=== PATIENT | male | born 1985 | race Caucasian/White ===

== ENCOUNTER 2021-03-29 12:52 | Inpatient (IN) | payer OTHER ==
[2021-03-29] MEDS ORDERED: ACETAMINOPHEN INJECTION 100 ML IVPB ONE (13:36)
[2021-03-29] MEDS ORDERED: LACTATED RINGERS SOLUTION 1000 ML INFUS.BAG IV ONE ×2 (13:37→15:38)
[2021-03-29] MEDS ORDERED: INSULIN (NOVOLOG) ASPART 100 UNITS/ML 10ML VIAL SQ ONE (13:40)
[2021-03-29 14:36] LABS: BASO % 0.2 % (0-2.0); HEMATOCRIT 35.2 % (35.4-49); HEMOGLOBIN 12.4 GM/dL (11.7-16.9); LYMPH % 24.1 % (8-40); MCH 33.9 pg (25.7-33.7); MCHC 35.1 g/dl (32.0-35.9); MEAN CELL VOLUME 96.4 fl (80-96); MEAN PLT VOLUME 9.2 fl (7.5-11.1); MONO % 8.6 % (3.8-10.2); NEUT % 67.1 % (42.8-82.8); PLATELET COUNT 157 10^3/uL (134-434); RBC 3.65 M/mm3 (4.00-5.60); RDW 11.9 % (11.9-15.9); WHITE BLOOD COUNT 3.3 K/mm3 (4.0-10.0)
[2021-03-29 14:37] LABS: VENOUS BASE EXCESS -4.1 mmol/L (-2-2); VENOUS O2 SATURATION 28.5 % (70-80); VENOUS PCO2 47.1 mmHg (38-52); VENOUS PH 7.297 (7.310-7.410)
[2021-03-29 14:42] LABS: INR 0.97 (0.83-1.09); PROTHROMBIN TIME (PATIENT) 11.9 SEC (9.7-13.0)
[2021-03-29 14:45] LABS: ACTIVATED PTT 27.8 SECONDS (25.2-36.5)
[2021-03-29 14:56] LABS: CHLORIDE 90 mmol/L (98-107); SODIUM 130 mmol/L (136-145)
[2021-03-29 14:58] LABS: ALBUMIN 3.3 g/dl (3.4-5.0); ANION GAP 17 MMOL/L (8-16); BLOOD UREA NITROGEN 12.1 mg/dL (7-18); CALCIUM 9.2 mg/dL (8.5-10.1); CO2 23 mmol/L (21-32)
[2021-03-29 15:01] LABS: SGOT/AST 36 U/L (15-37); SGPT/ALT 48 U/L (13-61)
[2021-03-29 15:03] LABS: BILIRUBIN,TOTAL 0.8 mg/dL (0.2-1); TOT PROT 7.6 g/dl (6.4-8.2)
[2021-03-29 15:04] LABS: ALK PHOS 53 U/L (45-117)
[2021-03-29] MEDS ORDERED: POTASSIUM CHLORIDE ORAL LIQUID 20 MEQ/15 ML PO ONE (15:04)
[2021-03-29 15:09] LABS: LACTIC ACID 2.3 mmol/L (0.4-2.0)
[2021-03-29 15:12] LABS: GLUCOSE,RANDOM 426 mg/dL (74-106)
[2021-03-29] MEDS ORDERED: D5-LR+20 MEQ KCL - 20 MEQ/1,000 ML INFUS.BAG IV SCH (15:15)
[2021-03-29] MEDS ORDERED: INSULIN REGULAR 100 UNITS in SODIUM CHLORIDE 99 ML IVPB SCH (15:15)
[2021-03-29] MEDS ORDERED: POTASSIUM CHLORIDE ORAL LIQUID 20 MEQ/15 ML ONE (15:39)
[2021-03-29] MEDS: KCL 10 MEQ IVPB 10 MEQ/100 ML INFUS.BAG IVPB SCH ×2 (16:15→17:30)
[2021-03-29 17:08] LABS: BLOOD UREA NITROGEN 12.5 mg/dL (7-18); CALCIUM 8.9 mg/dL (8.5-10.1)
[2021-03-29 17:12] LABS: CREATININE 1.7 mg/dL (0.55-1.3)
[2021-03-29] MEDS ORDERED: ACETAMINOPHEN 325 MG TABLET (FP) PO PRN (17:48)
[2021-03-29] MEDS ORDERED: METOCLOPRAMIDE HCL INJECTION 10 MG/2 ML VIAL IVPUSH PRN (17:48)
[2021-03-29] MEDS ORDERED: POTASSIUM CHLORIDE TABS 20 MEQ TABLET.ER (FP) PO ONE ×2 (17:54→18:07)
[2021-03-29] MEDS ORDERED: KCL 10 MEQ IVPB 10 MEQ/100 ML INFUS.BAG IVPB SCH (18:00)
[2021-03-29] MEDS ORDERED: KCL 10 MEQ IVPB 10 MEQ/100 ML INFUS.BAG IVPB ONE (18:06)
[2021-03-29 18:22] LABS: URINE APPEARANCE CLEAR; URINE BILIRUBIN NEGATIVE (NEGATIVE); URINE COLOR YELLOW; URINE GLUCOSE (UA) 3+ (NEGATIVE); URINE KETONE 1+ (NEGATIVE); URINE LEUK ESTERASE NEGATIVE (NEGATIVE); URINE NITRITE NEGATIVE (NEGATIVE); URINE PROTEIN NEGATIVE (NEGATIVE); URINE UROBILINOGEN 0.2 mg/dL (0.2-1.0)
[2021-03-29] MEDS: HEPARIN NA (PORCINE) 5,000 UNITS/ML 1ML VIAL SQ SCH (21:30)
[2021-03-29] MEDS: INSULIN (LEVEMIR) 100 UNITS/ML UNITS SQ SCH (21:30)
[2021-03-29] MEDS: CHLORHEXIDINE GLUCONATE 4% CLEANSER FOR DECOLONIZATION TP SCH (21:31)
[2021-03-29] MEDS: MUPIROCIN 2% TOPICAL OINTMENT FOR DECOLONIZATION NS SCH (21:31)
[2021-03-29] MEDS ORDERED: SODIUM CHLORIDE 0.45%/POT 20 MEQ/1,000 ML INFUS.BAG IV SCH (21:45)
[2021-03-29] MEDS: INSULIN SLIDING SCALE (NOVOLOG) 1 VIAL SQ SCH (22:00)
[2021-03-29] MEDS ORDERED: INSULIN SLIDING SCALE (NOVOLOG) 1 VIAL SQ SCH (22:00)
[2021-03-29] MEDS ORDERED: PT OWN MED DRAWER 7, Y5N ONE (22:08)
[2021-03-29 22:35] LABS: CALCIUM 9.1 mg/dL (8.5-10.1)
[2021-03-29 22:36] LABS: BLOOD UREA NITROGEN 11.3 mg/dL (7-18); MAGNESIUM 1.6 mg/dL (1.8-2.4)
[2021-03-29 22:39] LABS: CREATININE 1.4 mg/dL (0.55-1.3); PHOSPHOROUS 3.7 mg/dL (2.5-4.9)
[2021-03-29] MEDS ORDERED: POTASSIUM PHOSPHATE 15 MM in SODIUM CHLORIDE 250 ML IVPB ONE (22:52)
[2021-03-29] MEDS ORDERED: MAGNESIUM SULF 50% (8.12 MEQ/2 ML-1 GM VIAL) IVPB ONE (22:52)
[2021-03-30] MEDS: SODIUM CHLORIDE 0.9%/KCL 20 MEQ/1,000 ML INFUS.BAG IV SCH ×2 (00:23→22:17)
[2021-03-30] MEDS ORDERED: ACETAMINOPHEN 1000 MG/100 ML VIAL (NON FORMULARY) IVPB PRN (00:40)
[2021-03-30] MEDS ORDERED: PT OWN MED DRAWER 7, Y5N ONE ×2 (03:42→09:15)
[2021-03-30] MEDS: PANTOPRAZOLE 40 MG TABLET PO SCH ×2 (04:00→09:27)
[2021-03-30] MEDS: INSULIN SLIDING SCALE (NOVOLOG) 1 VIAL SQ SCH ×3 (06:23→17:47)
[2021-03-30] MEDS: HEPARIN NA (PORCINE) 5,000 UNITS/ML 1ML VIAL SQ SCH ×3 (06:23→22:17)
[2021-03-30] MEDS: INSULIN (LEVEMIR) 100 UNITS/ML UNITS SQ SCH ×2 (06:23→22:17)
[2021-03-30 07:00] LABS: BASO % 0.5 % (0-2.0); EOS % 0.1 % (0-4.5); HEMATOCRIT 30.3 % (35.4-49); HEMOGLOBIN 10.7 GM/dL (11.7-16.9); LYMPH % 26.7 % (8-40); MCH 33.7 pg (25.7-33.7); MCHC 35.3 g/dl (32.0-35.9); MEAN CELL VOLUME 95.5 fl (80-96); MEAN PLT VOLUME 8.7 fl (7.5-11.1); MONO % 8.7 % (3.8-10.2); PLATELET COUNT 139 10^3/uL (134-434); RBC 3.18 M/mm3 (4.00-5.60); RDW 11.7 % (11.9-15.9); WHITE BLOOD COUNT 2.4 K/mm3 (4.0-10.0)
[2021-03-30 07:17] LABS: CALCIUM 8.7 mg/dL (8.5-10.1)
[2021-03-30 07:18] LABS: ALBUMIN 2.7 g/dl (3.4-5.0); BLOOD UREA NITROGEN 8.2 mg/dL (7-18); MAGNESIUM 1.9 mg/dL (1.8-2.4)
[2021-03-30 07:21] LABS: CREATININE 1.1 mg/dL (0.55-1.3); PHOSPHOROUS 2.8 mg/dL (2.5-4.9)
[2021-03-30 07:23] LABS: BILIRUBIN,TOTAL 0.4 mg/dL (0.2-1); TOT PROT 6.2 g/dl (6.4-8.2)
[2021-03-30] MEDS: MUPIROCIN 2% TOPICAL OINTMENT FOR DECOLONIZATION NS SCH ×2 (09:26→22:17)
[2021-03-30] MEDS: DEXAMETHASONE SOD PHOSPHATE 4 MG/1 ML VIAL IVPUSH SCH (09:26)
[2021-03-30] MEDS: CHOLECALCIFEROL (VIT D3) 1,000 UNIT (25 MCG) TABLET PO SCH (09:27)
[2021-03-30] MEDS: ZINC SULFATE 220 MG CAPSULE (FP) PO SCH ×2 (09:27→22:18)
[2021-03-30] MEDS: ASCORBIC ACID 250 MG TABLET (FP) PO SCH (09:27)
[2021-03-30] MEDS ORDERED: REMDESIVIR 200 MG in SODIUM CHLORIDE 250 ML IVPB ONE (13:00)
[2021-03-30] MEDS ORDERED: Insulin (LOG) Aspart 100 UNITS/ML VIAL SQ ONE (17:47)
[2021-03-30] MEDS: CHLORHEXIDINE GLUCONATE 4% CLEANSER FOR DECOLONIZATION TP SCH (22:17)
[2021-03-30 22:54] LABS: CHLORIDE 103 mmol/L (98-107); SODIUM 136 mmol/L (136-145)
[2021-03-30 22:56] LABS: BLOOD UREA NITROGEN 9.2 mg/dL (7-18); CO2 21 mmol/L (21-32); GLUCOSE,RANDOM 349 mg/dL (74-106)
[2021-03-30 22:59] LABS: CREATININE 1.4 mg/dL (0.55-1.3)
[2021-03-30 23:33] LABS: ANION GAP 11 MMOL/L (8-16)
[2021-03-30] MEDS ORDERED: POTASSIUM CHLORIDE TABS 20 MEQ TABLET.ER (FP) PO ONE (23:36)
[2021-03-30] MEDS ORDERED: MAGNESIUM SULF 50% (8.12 MEQ/2 ML-1 GM VIAL) IVPB ONE (23:40)
[2021-03-31] MEDS: INSULIN SLIDING SCALE (NOVOLOG) 1 VIAL SQ SCH ×5 (00:10→21:09)
[2021-03-31] MEDS: KCL 10 MEQ IVPB 10 MEQ/100 ML INFUS.BAG IVPB SCH ×4 (03:00→06:27)
[2021-03-31] MEDS: HEPARIN NA (PORCINE) 5,000 UNITS/ML 1ML VIAL SQ SCH ×3 (05:32→21:08)
[2021-03-31 06:22] LABS: BASO % 0.1 % (0-2.0); EOS % 0.1 % (0-4.5); HEMOGLOBIN 10.9 GM/dL (11.7-16.9); LYMPH % 35.8 % (8-40); MCH 33.8 pg (25.7-33.7); MCHC 35.1 g/dl (32.0-35.9); MEAN CELL VOLUME 96.2 fl (80-96); MEAN PLT VOLUME 9.2 fl (7.5-11.1); MONO % 8.3 % (3.8-10.2); NEUT % 55.7 % (42.8-82.8); PLATELET COUNT 156 10^3/uL (134-434); RBC 3.22 M/mm3 (4.00-5.60); RDW 11.8 % (11.9-15.9); WHITE BLOOD COUNT 2.6 K/mm3 (4.0-10.0)
[2021-03-31] MEDS: INSULIN (LEVEMIR) 100 UNITS/ML UNITS SQ SCH ×2 (06:27→21:09)
[2021-03-31 06:42] LABS: CHOLESTEROL 91 mg/dL (50-200)
[2021-03-31 06:43] LABS: LDL CHOLESTEROL (ONLY SJRH) 30 mg/dL (5-100); TRIGLYCERIDES 89 mg/dL (0-150)
[2021-03-31 06:45] LABS: HDL CHOLESTEROL 50 mg/dL (40-60)
[2021-03-31 07:08] LABS: ALBUMIN 2.6 g/dl (3.4-5.0); BILIRUBIN,TOTAL 0.2 mg/dL (0.2-1); BLOOD UREA NITROGEN 8.7 mg/dL (7-18); CALCIUM 8.7 mg/dL (8.5-10.1); CREATININE 1.2 mg/dL (0.55-1.3); PHOSPHOROUS 2.2 mg/dL (2.5-4.9); TOT PROT 6.4 g/dl (6.4-8.2)
[2021-03-31 07:48] LABS: HIV INTERPRETATION NEGATIVE (NEGATIVE)
[2021-03-31] MEDS: MUPIROCIN 2% TOPICAL OINTMENT FOR DECOLONIZATION NS SCH (10:37)
[2021-03-31] MEDS: ASCORBIC ACID 250 MG TABLET (FP) PO SCH (11:37)
[2021-03-31] MEDS: DEXAMETHASONE SOD PHOSPHATE 4 MG/1 ML VIAL IVPUSH SCH (11:37)
[2021-03-31] MEDS: ZINC SULFATE 220 MG CAPSULE (FP) PO SCH ×2 (11:37→21:08)
[2021-03-31] MEDS: CHOLECALCIFEROL (VIT D3) 1,000 UNIT (25 MCG) TABLET PO SCH (11:37)
[2021-03-31] MEDS: PANTOPRAZOLE 40 MG TABLET PO SCH (11:37)
[2021-03-31] MEDS ORDERED: REMDESIVIR 100 MG in SODIUM CHLORIDE 250 ML IVPB SCH (13:00)
[2021-03-31 14:46] VITALS: BMI 22.2
[2021-03-31] MEDS ORDERED: PT OWN MED DRAWER 7, Y5N ONE (16:08)
[2021-03-31] MEDS ORDERED: Insulin (LOG) Aspart 100 UNITS/ML VIAL SQ ONE (17:25)
[2021-03-31] MEDS: SODIUM CHLORIDE 0.9%/KCL 20 MEQ/1,000 ML INFUS.BAG IV SCH ×2 (18:37→19:29)
[2021-03-31] MEDS ORDERED: INSULIN (NOVOLOG) ASPART 100 UNITS/ML 10ML VIAL ONE (20:54)
[2021-03-31] MEDS ORDERED: MUPIROCIN 2% TOPICAL OINTMENT FOR DECOLONIZATION NS SCH (22:00)
[2021-03-31] MEDS ORDERED: INSULIN (NOVOLOG) ASPART 100 UNITS/ML 10ML VIAL SQ ONE (23:58)
[2021-04-01] MEDS: HEPARIN NA (PORCINE) 5,000 UNITS/ML 1ML VIAL SQ SCH ×3 (06:34→21:36)
[2021-04-01] MEDS: SODIUM CHLORIDE 0.9%/KCL 20 MEQ/1,000 ML INFUS.BAG IV SCH (06:34)
[2021-04-01] MEDS: INSULIN (LEVEMIR) 100 UNITS/ML UNITS SQ SCH ×2 (06:34→21:47)
[2021-04-01] MEDS: INSULIN SLIDING SCALE (NOVOLOG) 1 VIAL SQ SCH ×4 (06:35→21:47)
[2021-04-01 09:02] LABS: BASO % 0.6 % (0-2.0); HEMATOCRIT 28.8 % (35.4-49); HEMOGLOBIN 9.8 GM/dL (11.7-16.9); MCH 33.3 pg (25.7-33.7); MCHC 34.2 g/dl (32.0-35.9); MEAN CELL VOLUME 97.3 fl (80-96); MONO % 7.4 % (3.8-10.2); PLATELET COUNT 160 10^3/uL (134-434); RBC 2.96 M/mm3 (4.00-5.60); RDW 12.4 % (11.9-15.9)
[2021-04-01 09:06] LABS: INR 0.92 (0.83-1.09); PROTHROMBIN TIME (PATIENT) 11.2 SEC (9.7-13.0)
[2021-04-01 09:08] LABS: ACTIVATED PTT 32.6 SECONDS (25.2-36.5)
[2021-04-01 09:26] LABS: ALBUMIN 2.6 g/dl (3.4-5.0); CALCIUM 8.5 mg/dL (8.5-10.1)
[2021-04-01 09:27] LABS: BLOOD UREA NITROGEN 8.9 mg/dL (7-18); MAGNESIUM 1.7 mg/dL (1.8-2.4)
[2021-04-01 09:30] LABS: CREATININE 1.1 mg/dL (0.55-1.3); PHOSPHOROUS 2.6 mg/dL (2.5-4.9)
[2021-04-01 09:31] LABS: BILIRUBIN,TOTAL 0.2 mg/dL (0.2-1)
[2021-04-01] MEDS ORDERED: DEXAMETHASONE SOD PHOSPHATE 4 MG/1 ML VIAL IVPUSH SCH (10:00)
[2021-04-01] MEDS ORDERED: MAGNESIUM 2GM/50ML STERILE WATER IVPB IVPB ONE (10:15)
[2021-04-01] MEDS ORDERED: SODIUM CHLORIDE 0.45% 1,000 ML IV SCH (10:30)
[2021-04-01] MEDS: ZINC SULFATE 220 MG CAPSULE (FP) PO SCH ×2 (10:56→21:34)
[2021-04-01] MEDS: CHOLECALCIFEROL (VIT D3) 1,000 UNIT (25 MCG) TABLET PO SCH (10:56)
[2021-04-01] MEDS: PANTOPRAZOLE 40 MG TABLET PO SCH (10:56)
[2021-04-01] MEDS: ASCORBIC ACID 250 MG TABLET (FP) PO SCH (10:56)
[2021-04-01] MEDS: REMDESIVIR 100 MG in SODIUM CHLORIDE 250 ML IVPB SCH (15:52)
[2021-04-01] MEDS: DEXAMETHASONE 4 MG TABLET (FP) PO SCH (15:53)
[2021-04-01] MEDS ORDERED: INSULIN (NOVOLOG) ASPART 100 UNITS/ML 10ML VIAL SQ ONE (21:05)
[2021-04-01] MEDS: GABAPENTIN 300 MG CAPSULE PO SCH (21:50)
[2021-04-02] MEDS: INSULIN (LEVEMIR) 100 UNITS/ML UNITS SQ SCH ×2 (06:07→23:13)
[2021-04-02] MEDS: HEPARIN NA (PORCINE) 5,000 UNITS/ML 1ML VIAL SQ SCH ×3 (06:07→22:59)
[2021-04-02] MEDS: INSULIN SLIDING SCALE (NOVOLOG) 1 VIAL SQ SCH ×4 (06:58→23:14)
[2021-04-02 07:48] LABS: BASO % 0.4 % (0-2.0); EOS % 0.1 % (0-4.5); HEMATOCRIT 30.3 % (35.4-49); HEMOGLOBIN 10.5 GM/dL (11.7-16.9); LYMPH % 27.3 % (8-40); MCH 33.1 pg (25.7-33.7); MCHC 34.6 g/dl (32.0-35.9); MEAN CELL VOLUME 95.7 fl (80-96); MEAN PLT VOLUME 8.6 fl (7.5-11.1); MONO % 7.2 % (3.8-10.2); PLATELET COUNT 180 10^3/uL (134-434); RBC 3.17 M/mm3 (4.00-5.60); RDW 12.3 % (11.9-15.9); WHITE BLOOD COUNT 2.9 K/mm3 (4.0-10.0)
[2021-04-02] MEDS: GABAPENTIN 300 MG CAPSULE PO SCH ×3 (08:00→22:59)
[2021-04-02 08:13] LABS: CALCIUM 8.4 mg/dL (8.5-10.1)
[2021-04-02 08:14] LABS: ALBUMIN 2.6 g/dl (3.4-5.0); MAGNESIUM 1.7 mg/dL (1.8-2.4)
[2021-04-02 08:17] LABS: CREATININE 0.9 mg/dL (0.55-1.3)
[2021-04-02 08:18] LABS: BILIRUBIN,TOTAL 0.3 mg/dL (0.2-1); PHOSPHOROUS 3.5 mg/dL (2.5-4.9); TOT PROT 6.3 g/dl (6.4-8.2)
[2021-04-02] MEDS ORDERED: MAGNESIUM OXIDE 400 MG TABLET (FP) PO ONE (08:45)
[2021-04-02] MEDS ORDERED: PT OWN MED DRAWER 7, Y5N ONE ×2 (09:55→12:29)
[2021-04-02] MEDS: DEXAMETHASONE 4 MG TABLET (FP) PO SCH (10:00)
[2021-04-02] MEDS: PANTOPRAZOLE 40 MG TABLET PO SCH (10:00)
[2021-04-02] MEDS: ZINC SULFATE 220 MG CAPSULE (FP) PO SCH ×2 (10:00→22:59)
[2021-04-02] MEDS: ASCORBIC ACID 250 MG TABLET (FP) PO SCH (10:00)
[2021-04-02] MEDS: CHOLECALCIFEROL (VIT D3) 1,000 UNIT (25 MCG) TABLET PO SCH (10:00)
[2021-04-02] MEDS ORDERED: SACUBITRIL/VALSARTAN 24 MG-26 MG TABLET PO SCH (11:45)
[2021-04-02] MEDS: REMDESIVIR 100 MG in SODIUM CHLORIDE 250 ML IVPB SCH (12:31)
[2021-04-02] MEDS: SACUBITRIL/VALSARTAN 24 MG-26 MG TABLET PO SCH ×2 (17:14→22:59)
[2021-04-03] MEDS: HEPARIN NA (PORCINE) 5,000 UNITS/ML 1ML VIAL SQ SCH ×2 (06:39→15:54)
[2021-04-03] MEDS: INSULIN SLIDING SCALE (NOVOLOG) 1 VIAL SQ SCH ×3 (06:48→16:47)
[2021-04-03] MEDS: INSULIN (LEVEMIR) 100 UNITS/ML UNITS SQ SCH (06:49)
[2021-04-03 08:49] LABS: BASO % 0.2 % (0-2.0); HEMATOCRIT 30.1 % (35.4-49); HEMOGLOBIN 10.6 GM/dL (11.7-16.9); LYMPH % 38.3 % (8-40); MCH 33.3 pg (25.7-33.7); MEAN CELL VOLUME 95.1 fl (80-96); NEUT % 54.5 % (42.8-82.8); PLATELET COUNT 204 10^3/uL (134-434); RBC 3.17 M/mm3 (4.00-5.60); RDW 12.2 % (11.9-15.9); WHITE BLOOD COUNT 3.2 K/mm3 (4.0-10.0)
[2021-04-03 08:53] LABS: INR 1.02 (0.83-1.09); PROTHROMBIN TIME (PATIENT) 12.3 SEC (9.7-13.0)
[2021-04-03 08:55] LABS: ACTIVATED PTT 29.8 SECONDS (25.2-36.5)
[2021-04-03 09:08] LABS: BLOOD UREA NITROGEN 11.6 mg/dL (7-18); CALCIUM 8.9 mg/dL (8.5-10.1); MAGNESIUM 1.5 mg/dL (1.8-2.4)
[2021-04-03 09:09] LABS: ALBUMIN 2.6 g/dl (3.4-5.0)
[2021-04-03 09:10] LABS: PHOSPHOROUS 2.7 mg/dL (2.5-4.9)
[2021-04-03 09:11] LABS: BILIRUBIN,TOTAL 0.3 mg/dL (0.2-1); TOT PROT 6.3 g/dl (6.4-8.2)
[2021-04-03] MEDS ORDERED: PT OWN MED DRAWER 7, Y5N ONE (10:17)
[2021-04-03] MEDS: ASCORBIC ACID 250 MG TABLET (FP) PO SCH (10:28)
[2021-04-03] MEDS: PANTOPRAZOLE 40 MG TABLET PO SCH (10:28)
[2021-04-03] MEDS: CHOLECALCIFEROL (VIT D3) 1,000 UNIT (25 MCG) TABLET PO SCH (10:28)
[2021-04-03] MEDS: GABAPENTIN 300 MG CAPSULE PO SCH (10:28)
[2021-04-03] MEDS: SACUBITRIL/VALSARTAN 24 MG-26 MG TABLET PO SCH (10:28)
[2021-04-03] MEDS: ZINC SULFATE 220 MG CAPSULE (FP) PO SCH (10:28)
[2021-04-03] MEDS: DEXAMETHASONE 4 MG TABLET (FP) PO SCH (10:28)
[2021-04-03] MEDS ORDERED: INSULIN (LEVEMIR) 100 UNITS/ML UNITS SQ SCH ×2 (12:31→22:00)
[2021-04-03] MEDS: REMDESIVIR 100 MG in SODIUM CHLORIDE 250 ML IVPB SCH (13:23)
[2021-04-03 14:27] VITALS: BP 128/63; PULSE 98; TEMP 99.3
[2021-04-04] MEDS ORDERED: INSULIN (LEVEMIR) 100 UNITS/ML UNITS SQ SCH (07:00)
== END 2021-04-03 19:03 | disposition home or self-care (01) | DRG 137 ==
LOC: JER 12:52 → JERBED 15:11 → JICU 20:41 → J6S 03-31 18:25
PROVIDERS: ADMIT Internal Medicine Pulmonary Disease; ATTEND Internal Medicine
PROC: XW033E5 Introduction of Remdesivir Anti-infective into Peripheral Vein, Percutaneous Approach, New Technology Group 5 (ICD-10-PCS; principal; 2021-03-30)
DX: U07.1 COVID-19 (principal); E10.40 Type 1 diabetes mellitus with diabetic neuropathy, unspecified; N17.9 Acute kidney failure, unspecified; E10.10 Type 1 diabetes mellitus with ketoacidosis without coma; E87.6 Hypokalemia; D64.9 Anemia, unspecified; D70.9 Neutropenia, unspecified; E88.09 Other disorders of plasma-protein metabolism, not elsewhere classified; I42.0 Dilated cardiomyopathy; I50.42 Chronic combined systolic (congestive) and diastolic (congestive) heart failure
CPT/HCPCS: 36415; 71045-TC-FY; 80048; 80053; 80061; 81003; 82010; 82550; 82728; 82803; 82962; 83036; 83605; 83615; 83721; 83735; 83880; 84100; 84484; 85025; 85379; 85610; 85651; 85730; 86140; 86769; 87040; 87086; 87389; 93005; 93010; 94761; 99291; C9399; C9803; J0131; J1644; U0003; U0005

== ENCOUNTER 2021-10-15 22:43 | Inpatient (IN) | payer OTHER ==
[2021-10-15 23:40] VITALS: BMI 24.8
[2021-10-16 04:27] LABS: BASO % 0.1 % (0-2.0); EOS % 0.1 % (0-4.5); HEMATOCRIT 33.8 % (35.4-49); HEMOGLOBIN 11.7 GM/dL (11.7-16.9); LYMPH % 17.3 % (8-40); MCH 33.6 pg (25.7-33.7); MCHC 34.7 g/dl (32.0-35.9); MEAN CELL VOLUME 96.8 fl (80-96); MEAN PLT VOLUME 7.8 fl (7.5-11.1); NEUT % 76.5 % (42.8-82.8); PLATELET COUNT 194 10^3/uL (134-434); RBC 3.49 M/mm3 (4.00-5.60); RDW 12.9 % (11.9-15.9); WHITE BLOOD COUNT 3.9 K/mm3 (4.0-10.0)
[2021-10-16 04:48] LABS: ALBUMIN 3.2 g/dl (3.4-5.0); CALCIUM 8.8 mg/dL (8.5-10.1)
[2021-10-16 04:51] LABS: CREATININE 0.9 mg/dL (0.55-1.3)
[2021-10-16 04:53] LABS: BILIRUBIN,TOTAL 0.4 mg/dL (0.2-1); TOT PROT 6.8 g/dl (6.4-8.2)
[2021-10-16 06:47] LABS: HEMATOCRIT 34.4 % (35.4-49); HEMOGLOBIN 11.6 GM/dL (11.7-16.9); MCH 33.1 pg (25.7-33.7); MCHC 33.8 g/dl (32.0-35.9); MEAN PLT VOLUME 8.3 fl (7.5-11.1); PLATELET COUNT 204 10^3/uL (134-434); RBC 3.52 M/mm3 (4.00-5.60); RDW 13.1 % (11.9-15.9)
[2021-10-16 07:13] LABS: CALCIUM 8.9 mg/dL (8.5-10.1)
[2021-10-16 07:14] LABS: ALBUMIN 3.3 g/dl (3.4-5.0); MAGNESIUM 1.4 mg/dL (1.8-2.4)
[2021-10-16 07:17] LABS: CREATININE 0.9 mg/dL (0.55-1.3); PHOSPHOROUS 3.7 mg/dL (2.5-4.9)
[2021-10-16 07:18] LABS: BILIRUBIN,TOTAL 0.6 mg/dL (0.2-1)
[2021-10-16] MEDS ORDERED: ACETAMINOPHEN 325 MG TABLET (FP) PO PRN (14:41)
[2021-10-16] MEDS: INSULIN SLIDING SCALE (NOVOLOG) 1 VIAL SQ SCH ×2 (17:46→21:30)
[2021-10-17] MEDS: INSULIN SLIDING SCALE (NOVOLOG) 1 VIAL SQ SCH ×2 (06:26→11:59)
[2021-10-17 06:47] VITALS: PULSE 75
[2021-10-17] MEDS ORDERED: ENOXAPARIN NA (PORCINE) 40 MG/0.4 ML DISP.SYRIN SQ SCH (10:00)
[2021-10-17 14:49] VITALS: BP 136/96; TEMP 98.4
[2021-10-17] MEDS ORDERED: Insulin (LOG) Aspart 100 UNITS/ML VIAL SQ ONE (14:49)
== END 2021-10-17 15:46 | disposition home or self-care (01) | DRG 639 ==
LOC: JER 22:43 → JERBED 10-16 03:06 → J7W 10-16 12:49
PROVIDERS: ADMIT Internal Medicine
DX: E10.649 Type 1 diabetes mellitus with hypoglycemia without coma (principal); E10.40 Type 1 diabetes mellitus with diabetic neuropathy, unspecified; I50.9 Heart failure, unspecified; R56.9 Unspecified convulsions
CPT/HCPCS: 36415; 70450-TC; 80053; 82962; 83735; 84100; 85025; 85027; 93005; 93010; 99285-25; C9803; U0003; U0005

== ENCOUNTER 2021-10-24 00:52 | Inpatient (IN) | payer OTHER ==
[2021-10-24] MEDS ORDERED: DEXTROSE 50%-WATER - 25 GM/50 ML VIAL IVPUSH ONE ×5 (01:00→03:07)
[2021-10-24 01:07] VITALS: BMI 24.4
[2021-10-24 01:14] LABS: HEMOGLOBIN 12.2 GM/dL (11.7-16.9); MCH 33.3 pg (25.7-33.7); MCHC 33.9 g/dl (32.0-35.9); MEAN CELL VOLUME 98.2 fl (80-96); MEAN PLT VOLUME 7.5 fl (7.5-11.1); PLATELET COUNT 217 10^3/uL (134-434); RBC 3.67 M/mm3 (4.00-5.60); RDW 12.9 % (11.9-15.9); WHITE BLOOD COUNT 5.4 K/mm3 (4.0-10.0)
[2021-10-24 01:22] LABS: INR 1.04 (0.83-1.09)
[2021-10-24 01:25] LABS: ACTIVATED PTT 26.9 SECONDS (25.2-36.5)
[2021-10-24 01:32] LABS: CHLORIDE 108 mmol/L (98-107); SODIUM 143 mmol/L (136-145)
[2021-10-24 01:34] LABS: CALCIUM 9.4 mg/dL (8.5-10.1)
[2021-10-24 01:35] LABS: ALBUMIN 3.5 g/dl (3.4-5.0); BLOOD UREA NITROGEN 10.1 mg/dL (7-18); CO2 28 mmol/L (21-32); GLUCOSE,RANDOM 92 mg/dL (74-106); MAGNESIUM 1.9 mg/dL (1.8-2.4)
[2021-10-24 01:37] LABS: SGPT/ALT 22 U/L (13-61)
[2021-10-24 01:38] LABS: CREATININE 1.2 mg/dL (0.55-1.3); SGOT/AST 23 U/L (15-37)
[2021-10-24 01:39] LABS: BILIRUBIN,TOTAL 0.5 mg/dL (0.2-1); TOT PROT 7.7 g/dl (6.4-8.2)
[2021-10-24 01:40] LABS: ALK PHOS 52 U/L (45-117); LACTIC ACID 2.5 mmol/L (0.4-2.0)
[2021-10-24 01:41] LABS: ANION GAP 7 MMOL/L (8-16)
[2021-10-24] MEDS ORDERED: MAGNESIUM SULF 50% (8.12 MEQ/2 ML-1 GM VIAL) IVPB ONE (01:57)
[2021-10-24] MEDS ORDERED: KCL 10 MEQ IVPB 10 MEQ/100 ML INFUS.BAG IVPB SCH (02:00)
[2021-10-24] MEDS: KCL 10 MEQ IVPB 10 MEQ/100 ML INFUS.BAG IVPB SCH ×3 (02:03→04:33)
[2021-10-24] MEDS ORDERED: MAGNESIUM SULFATE IN WATER 2 GM/50 ML IVPB IVPB ONE (02:04)
[2021-10-24] MEDS ORDERED: DEXTROSE 10%-WATER - 1,000 ML IV SCH (02:15)
[2021-10-24 02:49] LABS: URINE APPEARANCE CLEAR; URINE BILIRUBIN NEGATIVE (NEGATIVE); URINE COLOR YELLOW; URINE GLUCOSE (UA) 2+ (NEGATIVE); URINE KETONE NEGATIVE (NEGATIVE); URINE LEUK ESTERASE NEGATIVE (NEGATIVE); URINE NITRITE NEGATIVE (NEGATIVE); URINE PROTEIN NEGATIVE (NEGATIVE); URINE UROBILINOGEN 0.2 mg/dL (0.2-1.0)
[2021-10-24 02:57] LABS: URINE BARBITURATES NEGATIVE (NEGATIVE)
[2021-10-24 02:58] LABS: COCAINE, UR NEGATIVE (NEGATIVE); METHADONE, UR NEGATIVE (NEGATIVE); PHENCYCLIDINE,URINE NEGATIVE (NEGATIVE); URINE BENZODIAZEPINES NEGATIVE (NEGATIVE)
[2021-10-24 02:59] LABS: OPIATES, URI NEGATIVE (NEGATIVE); URINE AMPHETAMINES NEGATIVE (NEGATIVE)
[2021-10-24 03:05] LABS: ANISOCYTOSIS 2+; MACROCYTOSIS 0; OVALOCYTE 1+; PLATELET ESTIMATE NORMAL
[2021-10-24] MEDS ORDERED: KCL 10 MEQ IVPB 10 MEQ/100 ML INFUS.BAG IVPB ONE ×2 (03:09→04:14)
[2021-10-24 05:31] LABS: CALCIUM 9.3 mg/dL (8.5-10.1)
[2021-10-24 05:32] LABS: BLOOD UREA NITROGEN 8.5 mg/dL (7-18)
[2021-10-24 05:35] LABS: CREATININE 0.9 mg/dL (0.55-1.3)
[2021-10-24] MEDS ORDERED: HEPARIN NA (PORCINE) 5,000 UNITS/ML 1ML VIAL ONE (07:31)
[2021-10-24] MEDS: HEPARIN NA (PORCINE) 5,000 UNITS/ML 1ML VIAL SQ SCH ×2 (07:36→14:22)
[2021-10-24] MEDS ORDERED: SACUBITRIL/VALSARTAN 24 MG-26 MG TABLET PO SCH (10:00)
[2021-10-24 11:41] VITALS: BP 119/80; PULSE 83; TEMP 98
== END 2021-10-24 15:35 | disposition left against medical advice (07) | DRG 638 ==
LOC: JER 00:52 → JERBED 01:01
PROVIDERS: ADMIT Hospitalist; ATTEND Internal Medicine
DX: E10.649 Type 1 diabetes mellitus with hypoglycemia without coma (principal); I42.0 Dilated cardiomyopathy; E10.40 Type 1 diabetes mellitus with diabetic neuropathy, unspecified; Z79.4 Long term (current) use of insulin; R56.9 Unspecified convulsions; E87.6 Hypokalemia; I50.9 Heart failure, unspecified
CPT/HCPCS: 36415; 70450-TC; 71045-TC-FY; 80048; 80053; 80307; 81003; 82010; 82962; 83605; 83735; 84439; 84443; 84484; 85025; 85610; 85730; 93005; 93010; 99285-25; C9803; J1644; U0003; U0005

== ENCOUNTER 2021-11-18 12:57 | Inpatient (IN) | payer OTHER ==
[2021-11-18 13:40] LABS: VENOUS BASE EXCESS -24.7 mmol/L (-2-2); VENOUS O2 SATURATION 66.3 % (70-80); VENOUS PCO2 21.2 mmHg (38-52)
[2021-11-18] MEDS ORDERED: SODIUM CHLORIDE 0.9% 500 ML INFUS.BAG IV ONE (13:43)
[2021-11-18 13:46] LABS: HEMATOCRIT 39.2 % (35.4-49); MCH 33.6 pg (25.7-33.7); MCHC 33.1 g/dl (32.0-35.9); MEAN CELL VOLUME 101.6 fl (80-96); PLATELET COUNT 145 10^3/uL (134-434); RBC 3.86 M/mm3 (4.00-5.60); RDW 13.1 % (11.9-15.9); VENOUS PH 7.002 (7.310-7.410)
[2021-11-18 13:56] LABS: ACTIVATED PTT 31.5 SECONDS (25.2-36.5); INR 1.04 (0.83-1.09)
[2021-11-18] MEDS ORDERED: ONDANSETRON 4 MG/2 ML VIAL IVPUSH ONE (14:05)
[2021-11-18] MEDS ORDERED: POTASSIUM CHLORIDE 20 MEQ PREMIX IVPB 100 ML IVPB ONE (14:05)
[2021-11-18] MEDS ORDERED: SODIUM CHLORIDE 0.9%/KCL 20 MEQ/1,000 ML INFUS.BAG IV ONE (14:06)
[2021-11-18] MEDS ORDERED: ONDANSETRON 4 MG/2 ML VIAL ONE (14:08)
[2021-11-18 14:13] LABS: CHLORIDE 96 mmol/L (98-107); SODIUM 133 mmol/L (136-145)
[2021-11-18 14:14] LABS: ALBUMIN 3.6 g/dl (3.4-5.0); CALCIUM 9.9 mg/dL (8.5-10.1)
[2021-11-18 14:15] LABS: MAGNESIUM 2.3 mg/dL (1.8-2.4)
[2021-11-18 14:16] LABS: ANION GAP 31 MMOL/L (8-16); CO2 6 mmol/L (21-32); CREATININE 2.6 mg/dL (0.55-1.3)
[2021-11-18 14:17] LABS: PHOSPHOROUS 6.3 mg/dL (2.5-4.9); SGOT/AST 28 U/L (15-37); SGPT/ALT 40 U/L (13-61)
[2021-11-18 14:18] LABS: TOT PROT 8.5 g/dl (6.4-8.2)
[2021-11-18 14:19] LABS: ALK PHOS 66 U/L (45-117)
[2021-11-18 14:23] LABS: N-TERMINAL BNP 786.1 pg/ml (5-125)
[2021-11-18] MEDS ORDERED: INSULIN REGULAR HUMAN 100 UNITS/ML *VIAL IVPUSH ONE (14:34)
[2021-11-18] MEDS ORDERED: PIPERACILLIN/TAZOB 2.25 GM 2.25 GM in DEXTROSE 5%-WATER - 50 ML IVPB ONE (14:35)
[2021-11-18 14:42] LABS: LIPASE 63 U/L (73-393)
[2021-11-18] MEDS ORDERED: INSULIN REGULAR 100 UNITS in SODIUM CHLORIDE 99 ML IVPB SCH ×2 (14:45→17:30)
[2021-11-18] MEDS ORDERED: LACTATED RINGERS SOLUTION 1000 ML INFUS.BAG IV ONE (14:51)
[2021-11-18 14:55] LABS: BLOOD UREA NITROGEN 26.8 mg/dL (7-18); GLUCOSE,RANDOM 613 mg/dL (74-106)
[2021-11-18] MEDS ORDERED: PIPERACILLIN/TAZOB 2.25 GM 2.25 GM/50 ML BAG IVPB ONE (15:17)
[2021-11-18 15:38] LABS: EPI CELLS 4 /uL (0-25.1); HYALINE CASTS 2 /uL (0-3.1); URINE APPEARANCE CLEAR; URINE BACTERIA 1 /uL (0-1359); URINE BILIRUBIN NEGATIVE (NEGATIVE); URINE COLOR YELLOW; URINE GLUCOSE (UA) 3+ (NEGATIVE); URINE KETONE 4+ (NEGATIVE); URINE LEUK ESTERASE NEGATIVE (NEGATIVE); URINE NITRITE NEGATIVE (NEGATIVE); URINE PROTEIN 2+ (NEGATIVE); URINE RBC 2 /uL (0-23.9); URINE UROBILINOGEN 0.2 mg/dL (0.2-1.0); URINE WBC 7 /uL (0-25.8)
[2021-11-18 15:42] LABS: CHLORIDE 97 mmol/L (98-107); SODIUM 133 mmol/L (136-145)
[2021-11-18 15:44] LABS: BLOOD UREA NITROGEN 28.6 mg/dL (7-18); CALCIUM 9.4 mg/dL (8.5-10.1); CO2 7 mmol/L (21-32)
[2021-11-18 15:45] LABS: ALBUMIN 3.4 g/dl (3.4-5.0)
[2021-11-18 15:47] LABS: SGPT/ALT 38 U/L (13-61)
[2021-11-18 15:48] LABS: CREATININE 2.6 mg/dL (0.55-1.3); SGOT/AST 25 U/L (15-37)
[2021-11-18 15:49] LABS: BILIRUBIN,TOTAL 0.8 mg/dL (0.2-1); TOT PROT 8.1 g/dl (6.4-8.2)
[2021-11-18 15:50] LABS: ANISOCYTOSIS 0; MACROCYTOSIS 0
[2021-11-18 15:50] LABS: ALK PHOS 66 U/L (45-117); LACTIC ACID 3.3 mmol/L (0.4-2.0)
[2021-11-18 15:52] LABS: N-TERMINAL BNP 834.7 pg/ml (5-125)
[2021-11-18 15:54] LABS: ANION GAP 30 MMOL/L (8-16)
[2021-11-18 15:56] LABS: GLUCOSE,RANDOM 636 mg/dL (74-106)
[2021-11-18] MEDS ORDERED: SODIUM CHLORIDE 1,000 ML IV SCH (17:00)
[2021-11-18] MEDS ORDERED: PANTOPRAZOLE SODIUM 40 MG VIAL IVPUSH ONE (17:37)
[2021-11-18] MEDS ORDERED: CEFTRIAXONE 1 GM in DEXTROSE 5%-WATER - 100 ML IVPB ONE (17:38)
[2021-11-18] MEDS ORDERED: CEFTRIAXONE 1 GM/50 ML BAG ONE (18:37)
[2021-11-18] MEDS ORDERED: PANTOPRAZOLE SODIUM 40 MG VIAL ONE (18:38)
[2021-11-18 18:49] LABS: VENOUS BASE EXCESS -15.9 mmol/L (-2-2); VENOUS O2 SATURATION 88.4 % (70-80); VENOUS PCO2 21.2 mmHg (38-52); VENOUS PH 7.256 (7.310-7.410)
[2021-11-18 19:10] LABS: CHLORIDE 107 mmol/L (98-107); SODIUM 139 mmol/L (136-145)
[2021-11-18 19:12] LABS: ANION GAP 23 MMOL/L (8-16); CALCIUM 9.7 mg/dL (8.5-10.1); CO2 9 mmol/L (21-32)
[2021-11-18 19:13] LABS: BLOOD UREA NITROGEN 27.4 mg/dL (7-18)
[2021-11-18 19:16] LABS: CREATININE 2.4 mg/dL (0.55-1.3)
[2021-11-18 19:27] LABS: GLUCOSE,RANDOM 429 mg/dL (74-106)
[2021-11-18] MEDS ORDERED: METOCLOPRAMIDE HCL INJECTION 10 MG/2 ML VIAL IVPUSH ONE (19:27)
[2021-11-18 19:28] LABS: LACTIC ACID 2.8 mmol/L (0.4-2.0)
[2021-11-18] MEDS ORDERED: SODIUM CHLORIDE 0.45%/POT 20 MEQ/1,000 ML INFUS.BAG IV SCH (19:30)
[2021-11-18] MEDS ORDERED: METOCLOPRAMIDE HCL INJECTION 10 MG/2 ML VIAL ONE (20:27)
[2021-11-18 21:00] LABS: BLOOD UREA NITROGEN 26.5 mg/dL (7-18); CALCIUM 9.8 mg/dL (8.5-10.1)
[2021-11-18 21:03] LABS: CREATININE 2.2 mg/dL (0.55-1.3)
[2021-11-19] MEDS: HEPARIN - 25,000 UNIT in SODIUM CHLORIDE 495 ML IV SCH ×2 (00:33→18:35)
[2021-11-19] MEDS: MUPIROCIN 2% TOPICAL OINTMENT FOR DECOLONIZATION NS SCH ×3 (00:57→21:53)
[2021-11-19] MEDS: CHLORHEXIDINE GLUCONATE 4% CLEANSER FOR DECOLONIZATION TP SCH ×2 (00:58→21:53)
[2021-11-19 01:00] LABS: HEMATOCRIT 33.6 % (35.4-49); HEMOGLOBIN 11.6 GM/dL (11.7-16.9); MCH 33.2 pg (25.7-33.7); MCHC 34.4 g/dl (32.0-35.9); MEAN CELL VOLUME 96.6 fl (80-96); MEAN PLT VOLUME 9.1 fl (7.5-11.1); PLATELET COUNT 137 10^3/uL (134-434); RBC 3.48 M/mm3 (4.00-5.60); RDW 12.5 % (11.9-15.9); WHITE BLOOD COUNT 6.6 K/mm3 (4.0-10.0)
[2021-11-19] MEDS ORDERED: ACETAMINOPHEN 325 MG TABLET (FP) PO ONE (01:06)
[2021-11-19] MEDS ORDERED: DEXTROSE 5%-0.45% SALINE 1,000 ML IV SCH (01:15)
[2021-11-19 01:21] LABS: BLOOD UREA NITROGEN 26.1 mg/dL (7-18); CALCIUM 9.7 mg/dL (8.5-10.1)
[2021-11-19] MEDS ORDERED: ACETAMINOPHEN 1000 MG/100 ML BAG IVPB ONE (01:24)
[2021-11-19] MEDS ORDERED: ONDANSETRON 4 MG/2 ML VIAL IVPUSH ONE (01:24)
[2021-11-19 01:25] LABS: CREATININE 2.3 mg/dL (0.55-1.3)
[2021-11-19] MEDS: INSULIN SLIDING SCALE (NOVOLOG) 1 VIAL SQ SCH ×5 (02:02→21:53)
[2021-11-19 03:26] LABS: ANISOCYTOSIS 1+; MACROCYTOSIS 1+
[2021-11-19 07:54] LABS: PROTHROMBIN TIME (PATIENT) 11.5 SEC (9.7-13.0)
[2021-11-19 07:57] LABS: ACTIVATED PTT 32.8 SECONDS (25.2-36.5)
[2021-11-19 07:59] LABS: CHLORIDE 110 mmol/L (98-107); SODIUM 139 mmol/L (136-145)
[2021-11-19 08:09] LABS: CALCIUM 9.1 mg/dL (8.5-10.1)
[2021-11-19 08:10] LABS: ANION GAP 14 MMOL/L (8-16); BLOOD UREA NITROGEN 30.9 mg/dL (7-18); CO2 15 mmol/L (21-32); MAGNESIUM 2.1 mg/dL (1.8-2.4)
[2021-11-19 08:11] LABS: LIPASE 64 U/L (73-393)
[2021-11-19 08:12] LABS: SGPT/ALT 29 U/L (13-61)
[2021-11-19 08:13] LABS: BILIRUBIN,TOTAL 0.8 mg/dL (0.2-1); CREATININE 2.3 mg/dL (0.55-1.3); SGOT/AST 24 U/L (15-37)
[2021-11-19 08:14] LABS: ALK PHOS 48 U/L (45-117); TOT PROT 6.9 g/dl (6.4-8.2)
[2021-11-19 08:18] LABS: N-TERMINAL BNP 921.8 pg/ml (5-125)
[2021-11-19 08:21] LABS: BASO % 0.4 % (0-2.0); HEMATOCRIT 32.2 % (35.4-49); LYMPH % 8.4 % (8-40); MCHC 34.1 g/dl (32.0-35.9); MEAN PLT VOLUME 9.2 fl (7.5-11.1); MONO % 9.9 % (3.8-10.2); NEUT % 81.3 % (42.8-82.8); PLATELET COUNT 118 10^3/uL (134-434); RBC 3.32 M/mm3 (4.00-5.60); RDW 12.9 % (11.9-15.9); WHITE BLOOD COUNT 5.1 K/mm3 (4.0-10.0)
[2021-11-19 08:23] LABS: ALBUMIN 2.6 g/dl (3.4-5.0); GLUCOSE,RANDOM 439 mg/dL (74-106); PHOSPHOROUS 0.9 mg/dL (2.5-4.9)
[2021-11-19] MEDS ORDERED: AZITHROMYCIN IVPB 500 MG/250 ML BAG IVPB ONE (09:00)
[2021-11-19] MEDS ORDERED: NAPH,MB-DB/K PH,MBDB POWDER PACKET PO ONE (09:00)
[2021-11-19] MEDS ORDERED: CEFTRIAXONE 1 GM in DEXTROSE 5%-WATER - 50 ML IVPB SCH (10:00)
[2021-11-19 10:07] LABS: SARS-CoV-2 NAA Not Detected (Not Detected)
[2021-11-19 10:10] LABS: ANISOCYTOSIS 2+; MACROCYTOSIS 2+
[2021-11-19] MEDS ORDERED: cefTRIAXone SODIUM 1 GM VIAL ONE (10:13)
[2021-11-19] MEDS ORDERED: DEXTROSE 5%-WATER - 50 ML IVPB ONE (10:14)
[2021-11-19] MEDS: HEPARIN NA (PORCINE) 5,000 UNITS/ML 1ML VIAL IVPUSH PRN ×2 (11:15→18:39)
[2021-11-19 12:55] LABS: ARTERIAL BLD GAS O2 SATURATION 97.9 % (95-98); ARTERIAL BLOOD GAS BASE EXCESS -16.4 mmol/L (-2-2); ARTERIAL BLOOD GAS PO2 122.7 mmHg (80-100); ARTERIAL BLOOD GAS pH 7.234 (7.350-7.450)
[2021-11-19 13:02] LABS: ALLENS TEST POSITIVE
[2021-11-19] MEDS ORDERED: metoPROLOL SUCCINATE 25 MG TAB.SR.24H (FP) PO SCH (13:45)
[2021-11-19] MEDS: SODIUM CHLORIDE 1,000 ML IV SCH (14:00)
[2021-11-19 16:51] LABS: METHADONE, UR NEGATIVE (NEGATIVE); PHENCYCLIDINE,URINE NEGATIVE (NEGATIVE); URINE BARBITURATES NEGATIVE (NEGATIVE); URINE BENZODIAZEPINES NEGATIVE (NEGATIVE)
[2021-11-19 16:53] LABS: COCAINE, UR NEGATIVE (NEGATIVE); OPIATES, URI NEGATIVE (NEGATIVE); URINE AMPHETAMINES NEGATIVE (NEGATIVE)
[2021-11-19] MEDS ORDERED: PANTOPRAZOLE 40 MG TABLET PO ONE (17:08)
[2021-11-19] MEDS ORDERED: SODIUM PHOSPHATE - 20 MM in SODIUM CHLORIDE 250 ML IVPB ONE (17:38)
[2021-11-19 19:17] LABS: ANION GAP 22 MMOL/L (8-16); CALCIUM 8.9 mg/dL (8.5-10.1); CHLORIDE 105 mmol/L (98-107); CO2 9 mmol/L (21-32); CREATININE 2.4 mg/dL (0.55-1.3); SODIUM 135 mmol/L (136-145)
[2021-11-19 19:26] LABS: GLUCOSE,RANDOM 465 mg/dL (74-106)
[2021-11-20] MEDS: HEPARIN - 25,000 UNIT in SODIUM CHLORIDE 495 ML IV SCH ×2 (00:12→17:54)
[2021-11-20] MEDS: HEPARIN NA (PORCINE) 5,000 UNITS/ML 1ML VIAL IVPUSH PRN ×3 (01:04→17:06)
[2021-11-20] MEDS: INSULIN SLIDING SCALE (NOVOLOG) 1 VIAL SQ SCH ×4 (06:10→22:01)
[2021-11-20] MEDS: SODIUM CHLORIDE 1,000 ML IV SCH ×3 (06:42→22:02)
[2021-11-20 06:44] LABS: MCH 33.1 pg (25.7-33.7); MCHC 33.5 g/dl (32.0-35.9); MEAN CELL VOLUME 98.8 fl (80-96); MEAN PLT VOLUME 10.6 fl (7.5-11.1); PLATELET COUNT 174 10^3/uL (134-434); RBC 3.04 M/mm3 (4.00-5.60); RDW 13.4 % (11.9-15.9); WHITE BLOOD COUNT 4.2 K/mm3 (4.0-10.0)
[2021-11-20 07:30] LABS: ALBUMIN 2.3 g/dl (3.4-5.0); BILIRUBIN,TOTAL 1.2 mg/dL (0.2-1); BLOOD UREA NITROGEN 23.7 mg/dL (7-18); CALCIUM 8.3 mg/dL (8.5-10.1); CREATININE 2.2 mg/dL (0.55-1.3); MAGNESIUM 1.9 mg/dL (1.8-2.4); PHOSPHOROUS 2.2 mg/dL (2.5-4.9); TOT PROT 6.5 g/dl (6.4-8.2)
[2021-11-20] MEDS ORDERED: DEXTROSE 5%-WATER - 50 ML IVPB ONE ×2 (07:55→17:50)
[2021-11-20] MEDS ORDERED: cefTRIAXone SODIUM 1 GM VIAL ONE ×2 (07:55→17:50)
[2021-11-20 08:25] LABS: ANISOCYTOSIS 0; HELMET CELLS 0; HOWELL-JOLLY BODIES 0; MACROCYTOSIS 0; OVALOCYTE 0; ROULEAU 0; SICKELED CELLS 0; TARGET CELLS 0; TEAR DROP CELLS 0; TOXIC GRANULATION 0
[2021-11-20] MEDS: MUPIROCIN 2% TOPICAL OINTMENT FOR DECOLONIZATION NS SCH ×2 (09:01→21:53)
[2021-11-20] MEDS ORDERED: INSULIN (LEVEMIR) 100 UNITS/ML UNITS SQ SCH ×3 (10:00→18:06)
[2021-11-20] MEDS ORDERED: NAPH,MB-DB/K PH,MBDB POWDER PACKET PO ONE (10:00)
[2021-11-20 13:11] VITALS: BMI 23.0
[2021-11-20 16:12] LABS: BLOOD UREA NITROGEN 20.2 mg/dL (7-18); CALCIUM 8.4 mg/dL (8.5-10.1)
[2021-11-20] MEDS: CEFTRIAXONE 1 GM in DEXTROSE 5%-WATER - 50 ML IVPB SCH (17:54)
[2021-11-20] MEDS ORDERED: AMPICILLIN NA/SULBACTAM NA 1.5 GM VIAL ONE (21:27)
[2021-11-20] MEDS ORDERED: SODIUM CHLORIDE 100 ML IVPB ONE (21:27)
[2021-11-20] MEDS: CHLORHEXIDINE GLUCONATE 4% CLEANSER FOR DECOLONIZATION TP SCH (21:53)
[2021-11-20] MEDS: AMPICILLIN NA/SULBACTAM NA 1.5 GM in SODIUM CHLORIDE 100 ML IVPB SCH (21:53)
[2021-11-20] MEDS: INSULIN (LEVEMIR) 100 UNITS/ML UNITS SQ SCH (22:00)
[2021-11-21] MEDS: HEPARIN NA (PORCINE) 5,000 UNITS/ML 1ML VIAL IVPUSH PRN (00:52)
[2021-11-21] MEDS ORDERED: AMPICILLIN NA/SULBACTAM NA 1.5 GM VIAL ONE ×4 (01:09→20:09)
[2021-11-21] MEDS ORDERED: SODIUM CHLORIDE 100 ML IVPB ONE ×4 (01:09→20:09)
[2021-11-21] MEDS ORDERED: guaiFENesin/D-M SUGAR-FREE/ACLHOL-FREE 5 ML UNIT DOSE PO PRN ×2 (01:42→18:39)
[2021-11-21] MEDS: AMPICILLIN NA/SULBACTAM NA 1.5 GM in SODIUM CHLORIDE 100 ML IVPB SCH ×4 (02:48→20:14)
[2021-11-21] MEDS: INSULIN (LEVEMIR) 100 UNITS/ML UNITS SQ SCH ×2 (06:12→21:41)
[2021-11-21] MEDS: INSULIN SLIDING SCALE (NOVOLOG) 1 VIAL SQ SCH ×4 (06:13→21:42)
[2021-11-21 06:49] LABS: BASO % 0.4 % (0-2.0); EOS % 0.8 % (0-4.5); HEMATOCRIT 26.6 % (35.4-49); LYMPH % 34.4 % (8-40); MCH 32.7 pg (25.7-33.7); MEAN CELL VOLUME 96.4 fl (80-96); MEAN PLT VOLUME 9.4 fl (7.5-11.1); MONO % 15.3 % (3.8-10.2); NEUT % 49.1 % (42.8-82.8); PLATELET COUNT 124 10^3/uL (134-434); RBC 2.76 M/mm3 (4.00-5.60); RDW 12.8 % (11.9-15.9); WHITE BLOOD COUNT 2.4 K/mm3 (4.0-10.0)
[2021-11-21 07:17] LABS: BLOOD UREA NITROGEN 13.7 mg/dL (7-18); CALCIUM 7.3 mg/dL (8.5-10.1)
[2021-11-21 07:18] LABS: ALBUMIN 2.1 g/dl (3.4-5.0); MAGNESIUM 1.6 mg/dL (1.8-2.4); TOT PROT 5.1 g/dl (6.4-8.2)
[2021-11-21 07:21] LABS: BILIRUBIN,TOTAL 0.5 mg/dL (0.2-1); CREATININE 1.2 mg/dL (0.55-1.3)
[2021-11-21 07:26] LABS: N-TERMINAL BNP 476.3 pg/ml (5-125); PHOSPHOROUS 1.2 mg/dL (2.5-4.9)
[2021-11-21] MEDS ORDERED: POTASSIUM PHOSPHATE 30 MM in DEXTROSE 5%-WATER - 500 ML IVPB ONE (08:44)
[2021-11-21] MEDS ORDERED: POTASSIUM CHLORIDE ORAL LIQUID 20 MEQ/15 ML PO ONE (08:45)
[2021-11-21] MEDS ORDERED: DEXTROSE 5%-WATER - 50 ML IVPB ONE (09:35)
[2021-11-21] MEDS ORDERED: cefTRIAXone SODIUM 1 GM VIAL ONE (09:35)
[2021-11-21] MEDS: MUPIROCIN 2% TOPICAL OINTMENT FOR DECOLONIZATION NS SCH (09:42)
[2021-11-21] MEDS: CEFTRIAXONE 1 GM in DEXTROSE 5%-WATER - 50 ML IVPB SCH (09:42)
[2021-11-21] MEDS: MAGNESIUM 1GM/D5W - 1 GM/100 ML IVPB IVPB SCH ×2 (09:42→11:30)
[2021-11-21] MEDS ORDERED: AZITHROMYCIN IVPB 500 MG/250 ML BAG IVPB SCH (10:00)
[2021-11-21 10:41] LABS: ANISOCYTOSIS 0; MACROCYTOSIS 2+
[2021-11-21] MEDS: SODIUM CHLORIDE 1,000 ML IV SCH (14:18)
[2021-11-21] MEDS ORDERED: HEPARIN NA (PORCINE) 5,000 UNITS/ML 1ML VIAL IVPUSH PRN ×2 (18:39)
[2021-11-21] MEDS ORDERED: INSULIN (NOVOLOG) ASPART 100 UNITS/ML 10ML VIAL ONE (21:21)
[2021-11-21] MEDS: HEPARIN NA (PORCINE) 5,000 UNITS/ML 1ML VIAL SQ SCH (21:41)
[2021-11-22] MEDS ORDERED: SODIUM CHLORIDE 100 ML IVPB ONE ×4 (01:35→20:12)
[2021-11-22] MEDS ORDERED: AMPICILLIN NA/SULBACTAM NA 1.5 GM VIAL ONE ×4 (01:35→20:11)
[2021-11-22] MEDS: AMPICILLIN NA/SULBACTAM NA 1.5 GM in SODIUM CHLORIDE 100 ML IVPB SCH ×4 (03:14→20:32)
[2021-11-22] MEDS: HEPARIN NA (PORCINE) 5,000 UNITS/ML 1ML VIAL SQ SCH ×3 (06:06→21:54)
[2021-11-22] MEDS: INSULIN SLIDING SCALE (NOVOLOG) 1 VIAL SQ SCH ×4 (06:06→21:55)
[2021-11-22] MEDS: INSULIN (LEVEMIR) 100 UNITS/ML UNITS SQ SCH ×2 (06:06→21:54)
[2021-11-22] MEDS ORDERED: THIAMINE HCL 200 MG/2 ML VIAL IVPB ONE (08:50)
[2021-11-22] MEDS: PANTOPRAZOLE 40 MG TABLET PO SCH (09:32)
[2021-11-22] MEDS ORDERED: SACUBITRIL/VALSARTAN 24 MG-26 MG TABLET PO SCH (10:00)
[2021-11-22] MEDS: SACUBITRIL/VALSARTAN 24 MG-26 MG TABLET PO SCH ×2 (10:10→21:58)
[2021-11-22 10:39] LABS: HEMATOCRIT 32.4 % (35.4-49); HEMOGLOBIN 11.4 GM/dL (11.7-16.9); MCH 33.3 pg (25.7-33.7); MCHC 35.2 g/dl (32.0-35.9); MEAN CELL VOLUME 94.7 fl (80-96); MEAN PLT VOLUME 8.6 fl (7.5-11.1); PLATELET COUNT 174 10^3/uL (134-434); RBC 3.43 M/mm3 (4.00-5.60); RDW 13.1 % (11.9-15.9)
[2021-11-22 11:08] LABS: BLOOD UREA NITROGEN 6.1 mg/dL (7-18); MAGNESIUM 2.1 mg/dL (1.8-2.4)
[2021-11-22 11:12] LABS: BILIRUBIN,TOTAL 0.6 mg/dL (0.2-1); PHOSPHOROUS 2.1 mg/dL (2.5-4.9); TOT PROT 6.2 g/dl (6.4-8.2)
[2021-11-22 11:17] LABS: N-TERMINAL BNP 780.8 pg/ml (5-125)
[2021-11-22 11:18] LABS: ALBUMIN 2.6 g/dl (3.4-5.0); CALCIUM 8.8 mg/dL (8.5-10.1)
[2021-11-22 11:56] LABS: ANISOCYTOSIS 0; MACROCYTOSIS 0
[2021-11-22] MEDS ORDERED: POTASSIUM CHLORIDE TABS 20 MEQ TABLET.ER (FP) PO ONE ×2 (11:59→17:00)
[2021-11-22] MEDS: CARVEDILOL 3.125 MG TABLET (FP) PO SCH (21:54)
[2021-11-22] MEDS ORDERED: ATORVASTATIN CA 40 MG TABLET (FP) PO SCH (22:00)
[2021-11-23] MEDS ORDERED: AMPICILLIN NA/SULBACTAM NA 1.5 GM VIAL ONE ×2 (00:40→09:02)
[2021-11-23] MEDS ORDERED: SODIUM CHLORIDE 100 ML IVPB ONE ×2 (00:40→09:02)
[2021-11-23] MEDS: AMPICILLIN NA/SULBACTAM NA 1.5 GM in SODIUM CHLORIDE 100 ML IVPB SCH ×2 (02:20→09:07)
[2021-11-23] MEDS: INSULIN SLIDING SCALE (NOVOLOG) 1 VIAL SQ SCH ×2 (06:19→12:31)
[2021-11-23] MEDS: INSULIN (LEVEMIR) 100 UNITS/ML UNITS SQ SCH (06:19)
[2021-11-23] MEDS: HEPARIN NA (PORCINE) 5,000 UNITS/ML 1ML VIAL SQ SCH ×2 (06:19→13:24)
[2021-11-23] MEDS ORDERED: NAPH,MB-DB/K PH,MBDB POWDER PACKET PO ONE (07:07)
[2021-11-23 07:57] LABS: HEMATOCRIT 29.9 % (35.4-49); HEMOGLOBIN 10.3 GM/dL (11.7-16.9); MCH 32.8 pg (25.7-33.7); MCHC 34.3 g/dl (32.0-35.9); MEAN CELL VOLUME 95.8 fl (80-96); MEAN PLT VOLUME 9.1 fl (7.5-11.1); PLATELET COUNT 230 10^3/uL (134-434); RBC 3.13 M/mm3 (4.00-5.60); RDW 12.9 % (11.9-15.9)
[2021-11-23 08:18] LABS: WHITE BLOOD COUNT 1.9 K/mm3 (4.0-10.0)
[2021-11-23 08:32] LABS: CALCIUM 8.1 mg/dL (8.5-10.1)
[2021-11-23 08:33] LABS: ALBUMIN 2.3 g/dl (3.4-5.0); BLOOD UREA NITROGEN 4.7 mg/dL (7-18)
[2021-11-23 08:36] LABS: CREATININE 0.9 mg/dL (0.55-1.3)
[2021-11-23 08:38] LABS: BILIRUBIN,TOTAL 0.5 mg/dL (0.2-1)
[2021-11-23] MEDS: CARVEDILOL 3.125 MG TABLET (FP) PO SCH (09:07)
[2021-11-23] MEDS: PANTOPRAZOLE 40 MG TABLET PO SCH (09:07)
[2021-11-23] MEDS: SACUBITRIL/VALSARTAN 24 MG-26 MG TABLET PO SCH (09:32)
[2021-11-23 09:54] LABS: ANISOCYTOSIS 0; MACROCYTOSIS 0
[2021-11-23] MEDS ORDERED: SOLIFENACIN SUCCINATE 5 MG TAB PO SCH (10:00)
[2021-11-23] MEDS ORDERED: BACITRACIN 15 GM TUBE TOPICAL OINTMENT TP SCH (10:00)
[2021-11-23] MEDS ORDERED: ASPIRIN COATED 81 MG TABLET.EC PO SCH (10:00)
[2021-11-23] MEDS ORDERED: AMPICILLIN NA/SULBACTAM NA 1.5 GM in SODIUM CHLORIDE 100 ML IVPB SCH ×2 (10:15→16:00)
[2021-11-23] MEDS ORDERED: INSULIN (NOVOLOG) ASPART 100 UNITS/ML 10ML VIAL SQ SCH (11:00)
[2021-11-23 14:16] LABS: HIV INTERPRETATION NEGATIVE (NEGATIVE)
[2021-11-23 14:59] VITALS: BP 100/64; PULSE 83; TEMP 98
== END 2021-11-23 15:56 | disposition home or self-care (01) | DRG 637 ==
LOC: JER 12:57 → JERBED 13:49 → JICU 21:59 → J8W 11-21 16:58
PROVIDERS: ADMIT Internal Medicine; ATTEND Internal Medicine
DX: E10.10 Type 1 diabetes mellitus with ketoacidosis without coma (principal); J18.9 Pneumonia, unspecified organism; I42.0 Dilated cardiomyopathy; D61.818 Other pancytopenia; N17.9 Acute kidney failure, unspecified; I50.22 Chronic systolic (congestive) heart failure; E10.42 Type 1 diabetes mellitus with diabetic polyneuropathy; D72.819 Decreased white blood cell count, unspecified; Z91.14 Patient's other noncompliance with medication regimen
CPT/HCPCS: 36415; 36600; 71045-TC-FY; 71250-TC; 71275-TC; 76775-TC; 80048; 80053; 80061; 80307; 81003; 82010; 82272; 82436; 82570; 82607; 82746; 82803; 82962; 83036; 83605; 83690; 83735; 83880; 84100; 84133; 84300; 84484; 85025; 85045; 85379; 85384; 85610; 85730; 86140; 86850; 86900; 86901; 87040; 87070; 87086; 87205; 87389; 93005; 93010; 93306-TC; 93970-TC; 99291; C9803-CS; J1644; J3480; U0003; U0005

== ENCOUNTER 2021-11-30 07:36 | Inpatient (IN) | payer OTHER ==
[2021-11-30] MEDS ORDERED: NALOXONE HCL 0.4 MG/ML VIAL ONE (07:51)
[2021-11-30] MEDS ORDERED: NALOXONE HCL 0.4 MG/ML VIAL IVPUSH ONE (08:07)
[2021-11-30 08:33] LABS: VENOUS BASE EXCESS -6.6 mmol/L (-2-2); VENOUS O2 SATURATION 98.5 % (70-80); VENOUS PCO2 38.3 mmHg (38-52)
[2021-11-30 08:34] LABS: VENOUS PH 7.314 (7.310-7.410)
[2021-11-30 08:36] LABS: BASO % 0.2 % (0-2.0); HEMATOCRIT 29.6 % (35.4-49); HEMOGLOBIN 10.4 GM/dL (11.7-16.9); LYMPH % 8.4 % (8-40); MCH 33.3 pg (25.7-33.7); MEAN CELL VOLUME 95.2 fl (80-96); MEAN PLT VOLUME 8.6 fl (7.5-11.1); MONO % 3.3 % (3.8-10.2); NEUT % 88.1 % (42.8-82.8); PLATELET COUNT 380 10^3/uL (134-434); RBC 3.11 M/mm3 (4.00-5.60); RDW 12.7 % (11.9-15.9); WHITE BLOOD COUNT 8.3 K/mm3 (4.0-10.0)
[2021-11-30 08:44] LABS: INR 1.09 (0.83-1.09); PROTHROMBIN TIME (PATIENT) 12.5 SEC (9.7-13.0)
[2021-11-30 09:04] LABS: CALCIUM 8.9 mg/dL (8.5-10.1)
[2021-11-30 09:05] LABS: BLOOD UREA NITROGEN 11.3 mg/dL (7-18)
[2021-11-30 09:08] LABS: CREATININE 1.1 mg/dL (0.55-1.3)
[2021-11-30 09:09] LABS: BILIRUBIN,TOTAL 0.6 mg/dL (0.2-1)
[2021-11-30 09:10] LABS: TOT PROT 6.9 g/dl (6.4-8.2)
[2021-11-30 09:22] LABS: ALBUMIN 3.1 g/dl (3.4-5.0)
[2021-11-30] MEDS ORDERED: VANCOMYCIN 1 GM in D5W (PRE-DOCKED) 1,000 MG/250 ML IVPB ONE (10:33)
[2021-11-30] MEDS ORDERED: PIPERACILLIN/TAZOB 3.375 GM 3.375 GM in DEXTROSE 5%-WATER - 50 ML IVPB ONE (10:33)
[2021-11-30 10:35] LABS: URINE APPEARANCE CLEAR; URINE BILIRUBIN NEGATIVE (NEGATIVE); URINE COLOR YELLOW; URINE GLUCOSE (UA) 2+ (NEGATIVE); URINE KETONE NEGATIVE (NEGATIVE); URINE LEUK ESTERASE NEGATIVE (NEGATIVE); URINE NITRITE NEGATIVE (NEGATIVE); URINE PROTEIN NEGATIVE (NEGATIVE); URINE UROBILINOGEN 0.2 mg/dL (0.2-1.0)
[2021-11-30] MEDS ORDERED: VANCOMYCIN 1 GRAM (PRE-DOCKED) 1,000 MG/250 ML BAG IVPB ONE (10:46)
[2021-11-30] MEDS ORDERED: PIPERACILLIN/TAZOB 3.375 GM 3.375 GM/50 ML BAG IVPB ONE (10:47)
[2021-11-30] MEDS ORDERED: levETIRAcetam 500 MG/5 ML INJECTION VIAL IVPB ONE ×2 (10:48→11:00)
[2021-11-30 10:52] LABS: COCAINE, UR NEGATIVE (NEGATIVE); METHADONE, UR NEGATIVE (NEGATIVE); OPIATES, URI NEGATIVE (NEGATIVE); PHENCYCLIDINE,URINE NEGATIVE (NEGATIVE); URINE AMPHETAMINES NEGATIVE (NEGATIVE); URINE BARBITURATES NEGATIVE (NEGATIVE); URINE BENZODIAZEPINES NEGATIVE (NEGATIVE)
[2021-11-30] MEDS ORDERED: DEXTROSE 10%-WATER 500 ML INFUS.BAG IV ONE (13:16)
[2021-11-30 13:40] LABS: ARTERIAL BLD GAS O2 SATURATION 98.3 % (95-98); ARTERIAL BLOOD GAS BASE EXCESS -5.5 mmol/L (-2-2); ARTERIAL BLOOD GAS PO2 119.8 mmHg (80-100); ARTERIAL BLOOD GAS pH 7.378 (7.350-7.450)
[2021-11-30 13:44] LABS: ALLENS TEST POSITIVE
[2021-11-30] MEDS ORDERED: DEXTROSE 5%-NORMAL SALINE 1,000 ML IV SCH ×2 (15:00)
[2021-11-30] MEDS ORDERED: PIPERACILLIN/TAZOB 2.25 GM 2.25 GM in DEXTROSE 5%-WATER - 50 ML IVPB SCH (18:00)
[2021-11-30] MEDS: PIPERACILLIN/TAZOB 2.25 GM 2.25 GM in DEXTROSE 5%-WATER - 50 ML IVPB SCH (22:00)
[2021-11-30] MEDS: INSULIN SLIDING SCALE (NOVOLOG) 1 VIAL SQ SCH (22:20)
[2021-11-30] MEDS ORDERED: PIPERACILLIN/TAZOB 2.25 GM 2.25 GM/50 ML BAG IVPB ONE (22:21)
[2021-11-30 23:49] VITALS: BMI 23.4
[2021-12-01] MEDS ORDERED: PIPERACILLIN/TAZOBACTAM 2.25 GM VIAL IVPB ONE (06:02)
[2021-12-01] MEDS ORDERED: DEXTROSE 5%-WATER - 50 ML IVPB ONE ×2 (06:02→13:26)
[2021-12-01] MEDS: PIPERACILLIN/TAZOB 2.25 GM 2.25 GM in DEXTROSE 5%-WATER - 50 ML IVPB SCH (06:34)
[2021-12-01 06:38] LABS: BASO % 0.1 % (0-2.0); EOS % 0.1 % (0-4.5); HEMATOCRIT 27.6 % (35.4-49); HEMOGLOBIN 9.6 GM/dL (11.7-16.9); LYMPH % 9.7 % (8-40); MCH 33.2 pg (25.7-33.7); MCHC 34.7 g/dl (32.0-35.9); MEAN CELL VOLUME 95.5 fl (80-96); MEAN PLT VOLUME 8.3 fl (7.5-11.1); MONO % 3.1 % (3.8-10.2); PLATELET COUNT 281 10^3/uL (134-434); RBC 2.89 M/mm3 (4.00-5.60); RDW 12.9 % (11.9-15.9); WHITE BLOOD COUNT 12.5 K/mm3 (4.0-10.0)
[2021-12-01] MEDS: INSULIN SLIDING SCALE (NOVOLOG) 1 VIAL SQ SCH ×3 (06:56→17:06)
[2021-12-01 07:04] LABS: CALCIUM 8.1 mg/dL (8.5-10.1)
[2021-12-01 07:05] LABS: BLOOD UREA NITROGEN 10.7 mg/dL (7-18); MAGNESIUM 1.4 mg/dL (1.8-2.4)
[2021-12-01 07:07] LABS: BILIRUBIN,TOTAL 1.7 mg/dL (0.2-1); PHOSPHOROUS 2.7 mg/dL (2.5-4.9); TOT PROT 5.7 g/dl (6.4-8.2)
[2021-12-01 07:08] LABS: CREATININE 1.1 mg/dL (0.55-1.3)
[2021-12-01 07:35] LABS: ALBUMIN 2.3 g/dl (3.4-5.0)
[2021-12-01] MEDS ORDERED: THIAMINE HCL 200 MG/2 ML VIAL IVPB ONE (08:30)
[2021-12-01] MEDS ORDERED: MAGNESIUM SULF 50% (8.12 MEQ/2 ML-1 GM VIAL) IVPB ONE (08:52)
[2021-12-01] MEDS: MAGNESIUM 1GM/D5W 100ML - 100 ML IVPB IVPB ONE ×2 (09:29→09:57)
[2021-12-01] MEDS ORDERED: chlordiazePOXIDE HCL 25 MG CAPSULE PO PRN (09:32)
[2021-12-01] MEDS: ASPIRIN COATED 81 MG TABLET.EC PO SCH (10:12)
[2021-12-01] MEDS: CARVEDILOL 3.125 MG TABLET (FP) PO SCH ×2 (10:12→21:01)
[2021-12-01] MEDS: chlordiazePOXIDE HCL 25 MG CAPSULE PO SCH ×3 (10:12→22:36)
[2021-12-01] MEDS: SACUBITRIL/VALSARTAN 24 MG-26 MG TABLET PO SCH ×2 (10:12→21:01)
[2021-12-01] MEDS: SOLIFENACIN SUCCINATE 5 MG TAB PO SCH (10:14)
[2021-12-01] MEDS ORDERED: CEFTRIAXONE 1 GM in DEXTROSE 5%-WATER - 50 ML IVPB SCH (12:30)
[2021-12-01] MEDS ORDERED: cefTRIAXone SODIUM 1 GM VIAL ONE (13:25)
[2021-12-01] MEDS: levETIRAcetam 500 MG TABLET (FP) PO SCH ×2 (13:29→21:01)
[2021-12-01] MEDS ORDERED: INSULIN (LEVEMIR) 100 UNITS/ML UNITS SQ SCH (22:00)
[2021-12-01] MEDS ORDERED: ATORVASTATIN CA 40 MG TABLET (FP) PO SCH (22:00)
[2021-12-02] MEDS: chlordiazePOXIDE HCL 25 MG CAPSULE PO SCH ×2 (05:13→10:05)
[2021-12-02] MEDS: INSULIN SLIDING SCALE (NOVOLOG) 1 VIAL SQ SCH ×2 (06:13→11:16)
[2021-12-02 07:11] LABS: BASO % 0.6 % (0-2.0); EOS % 0.7 % (0-4.5); HEMATOCRIT 29.3 % (35.4-49); HEMOGLOBIN 9.9 GM/dL (11.7-16.9); LYMPH % 21.2 % (8-40); MCH 32.6 pg (25.7-33.7); MCHC 33.6 g/dl (32.0-35.9); MEAN CELL VOLUME 96.9 fl (80-96); MEAN PLT VOLUME 8.6 fl (7.5-11.1); MONO % 6.1 % (3.8-10.2); NEUT % 71.4 % (42.8-82.8); PLATELET COUNT 275 10^3/uL (134-434); RBC 3.02 M/mm3 (4.00-5.60); WHITE BLOOD COUNT 6.3 K/mm3 (4.0-10.0)
[2021-12-02 07:24] LABS: ALBUMIN 2.3 g/dl (3.4-5.0); BLOOD UREA NITROGEN 8.7 mg/dL (7-18); CALCIUM 8.8 mg/dL (8.5-10.1); MAGNESIUM 1.8 mg/dL (1.8-2.4)
[2021-12-02 07:28] LABS: BILIRUBIN,TOTAL 0.7 mg/dL (0.2-1); TOT PROT 6.2 g/dl (6.4-8.2)
[2021-12-02 08:03] VITALS: TEMP 98.5
[2021-12-02] MEDS: SACUBITRIL/VALSARTAN 24 MG-26 MG TABLET PO SCH (09:11)
[2021-12-02] MEDS: levETIRAcetam 500 MG TABLET (FP) PO SCH (09:11)
[2021-12-02] MEDS: SOLIFENACIN SUCCINATE 5 MG TAB PO SCH (09:11)
[2021-12-02] MEDS: ASPIRIN COATED 81 MG TABLET.EC PO SCH (09:11)
[2021-12-02] MEDS: CARVEDILOL 3.125 MG TABLET (FP) PO SCH (09:12)
[2021-12-02] MEDS ORDERED: INSULIN (LEVEMIR) 100 UNITS/ML UNITS SQ ONE (10:45)
[2021-12-02 13:03] VITALS: PULSE 100
[2021-12-02 13:09] VITALS: BP 100/64
[2021-12-03] MEDS ORDERED: chlordiazePOXIDE HCL 25 MG CAPSULE PO SCH (05:00)
[2021-12-03] MEDS ORDERED: INSULIN (LEVEMIR) 100 UNITS/ML UNITS SQ SCH (08:00)
[2021-12-04] MEDS ORDERED: chlordiazePOXIDE HCL 10 MG CAPSULE PO PRN
[2021-12-04] MEDS ORDERED: chlordiazePOXIDE HCL 10 MG CAPSULE PO SCH (05:00)
[2021-12-05] MEDS ORDERED: chlordiazePOXIDE HCL 10 MG CAPSULE PO SCH (05:00)
[2021-12-06] MEDS ORDERED: chlordiazePOXIDE HCL 10 MG CAPSULE PO ONE (05:00)
== END 2021-12-02 13:35 | disposition left against medical advice (07) | DRG 637 ==
LOC: JER 07:36 → JERBED 12:21 → J2W 22:51
PROVIDERS: ADMIT Internal Medicine; ATTEND Internal Medicine
DX: E11.649 Type 2 diabetes mellitus with hypoglycemia without coma (principal); J69.0 Pneumonitis due to inhalation of food and vomit; I50.22 Chronic systolic (congestive) heart failure; I42.9 Cardiomyopathy, unspecified; E87.3 Alkalosis; E87.2 Acidosis; D72.829 Elevated white blood cell count, unspecified; R74.01 Elevation of levels of liver transaminase levels; F10.10 Alcohol abuse, uncomplicated; E86.0 Dehydration
CPT/HCPCS: 36415; 36600; 70450-TC; 70551-TC; 71045-TC-FY; 80053; 80307; 81003; 82140; 82550; 82728; 82803; 82962; 83605; 83735; 83930; 84100; 84443; 84484; 85025; 85610; 85730; 86850; 86900; 86901; 87040; 93005; 93010; 95816; 97116-GP; 97161-GP; 99291; 99292; C9803-CS; U0003; U0005